=== PATIENT | male | born 1955 | race Caucasian/White ===

== ENCOUNTER 2021-02-10 09:06 | Emergency (ER) | payer OTHER, SELFPAY ==
[2021-02-10 09:36] VITALS: BP 163/87; PULSE 66; RESP 17; TEMP 37.1; O2SAT 100; BMI 30.9
--- NOTE | 2021-02-10 10:01 | DI.CT.S_ITS ---
PROCEDURE: CT KIDNEY URETER BLADDER (KUB) INDICATIONS: right flank pain, now right groin, likely stone. TECHNIQUE: Noncontrast 5 mm thick sections acquired from the diaphragms to the symphysis. 5 mm thick coronal and sagittal reformats were then performed. For radiation dose reduction, the following was used: automated exposure control, adjustment of mA and/or kV according to patient size. COMPARISON: None. FINDINGS: Image quality: Excellent. Lung bases: Lung bases are clear. Heart size is normal. Urinary system: Right kidney: Mild hydronephrosis and perinephric stranding. No renal stone. Right ureter: Mildly dilated to the level of the ureterovesical junction where there is a 2 mm obstructing stone. Left kidney: No stone or hydronephrosis. Left ureter: Unremarkable. Bladder: Decompressed. No bladder stones. No bladder wall thickening. Other solid organs: Liver is normal in size. Gallbladder is unremarkable. Pancreas is normal in contours. Spleen is normal in size. No adrenal nodules. Peritoneum and bowel: Unenhanced bowel loops demonstrate normal wall thickness and caliber. No free fluid or air. Extensive sigmoid diverticulosis. Extensive diffuse colonic diverticulosis. Evidence of diverticulitis. Nodes and vessels: No retroperitoneal or mesenteric adenopathy by size criteria. Aorta and inferior vena cava are normal in caliber. Abdominal wall: No ventral hernias. Pelvis: No free pelvic fluid. No inguinal hernias or adenopathy. Bones: No suspicious bony lesions. No vertebral body compression fractures. IMPRESSION: 1. A 2 mm stone obstructs the right ureter at the level of the ureterovesical junction resulting in mild right hydronephrosis and perinephric stranding. 2. Diverticulosis without evidence of diverticulitis. Dictated by: Leodan Muñoz M.D. on 02/10/2021 at 9:43 Approved by: Leodan Muñoz M.D. on 02/10/2021 at 9:47
--- NOTE | 2021-02-10 10:04 | ED.MALEGU ---
HPI - Male Genitourinary General Chief complaint: Abdominal Pain Stated complaint: Kidney Stones Time Seen by Provider: 02/10/21 09:28 Source: patient Mode of arrival: Family Vehicle Limitations: no limitations History of Present Illness HPI Narrative: This is a 65-year-old male who comes to the emergency department with complaint of right flank pain with sudden onset about 2 or 3:00 a.m.. Patient was visiting [place] overnight he was evaluated by the medics and was given Toradol and Zofran which gave him approximately 2 hours improved and then his pain began to reoccur. States his flank pain has since moved more to the right groin and testicle area. Patient still has some flank discomfort but it is mostly anterior at this time. No fevers or chills. He does no longer nauseated or having any emesis but was nauseated early this morning. He denies any hematuria, dysuria, frequency or difficulty with urination. He denies any new changes to bowel movements with no diarrhea constipation. Patient states he had similar symptoms about 10 years ago, was seen at the hospital and was able to pass his stone within several days. Patient denies any regular medications. He does have sleep apnea and uses a CPAP. He does have a history of atrial fibrillation and had an ablation several years ago with resolution of his atrial fibrillation and is not currently anticoagulated. He denies any other surgeries, he has not required urology follow-up for intervention for his prior kidney stone. He denies any allergies to medications. He is accompanied by his . Related Data Home Medications Medication Instructions Recorded Confirmed atorvastatin 20 mg tablet 10 mg PO BEDTIME tab 10/12/18 10/12/18 Previous Rx's Medication Instructions Recorded ciprofloxacin HCl 500 mg tablet 500 mg PO BID #6 tab 10/12/18 zolpidem 10 mg tablet 10 mg PO BEDTIME PRN #30 tab 10/12/18 lorazepam 0.5 mg tablet 0.5 mg PO DAILY #5 tab 10/18/18 hydrocodone-acetaminophen 1 tab PO Q6H PRN #14 tab 02/10/21 tamsulosin [Flomax] 0.4 mg PO DAILY #7 cap 02/10/21 Allergies Allergy/AdvReac Type Severity Reaction Status Date / Time No Known Allergies Allergy Uncoded 02/10/21 09:39 Review of Systems Review of Systems ROS Unobtainable: All systems reviewed & are unremarkable except as noted in HPI and below Patient History Medical History Anxiety (2009) Atrial fibrillation (2015) Foot pain (1999) Hearing loss (2009) Hyperlipidemia (2015) Sleep apnea (2007) TIA (transient ischemic attack) (01/18/17) Tinnitus (1999) Surgical History S/P ablation of atrial fibrillation Status post cardiac catheterization (2002) Status post excision of lipoma Family History Father Heart disease Hypertension High cholesterol Stroke Mother Age: 92 Hypertension High cholesterol Brother No problems noted. Brother No problems noted. Brother No problems noted. Family/Other No problems noted. Sister No problems noted. Social History marital status: unmarried,living together number of children: 1 household members: significant other lives independently: Yes education level: college occupational status: other (retired) Smoking Status: Never smoker alcohol intake: current substance use type: does not use Smoking Status: Never smoker alcohol intake frequency: 0-2 drinks per day Substance Use Type: does not use Exam Narrative Exam Narrative: GENERAL: Alert and oriented x three, well-nourished male in mild to moderate distress. HEENT: Head normocephalic, atraumatic, EOMI, pupils reactive, face symmetric, moist mucous membranes NECK: Supple, full range of motion CARDIOVASCULAR: Regular rate and rhythm without murmurs, rubs or gallops. RESPIRATORY: Breath sounds equal bilaterally, no wheezes rales or rhonchi. ABDOMEN: Soft, nontender. Normoactive bowel sounds all 4 quadrants. No guarding or rebound, rigidity, no mass : No CVA tenderness EXTREMITIES: Normal range of motion, no clubbing or edema. Neurovascularly intact NEUROLOGICAL: Cranial nerves II through XII grossly intact. Moving all extremities SKIN: Warm, dry, no petechiae, no rashes or lesions. Initial Vital Signs Initial Vital Signs: Vital Signs Temperature 98.8 F 02/10/21 09:36 Pulse Rate 66 02/10/21 09:36 Respiratory Rate 17 02/10/21 09:36 Blood Pressure 163/87 H 03/14/21 09:36 Pulse Oximetry 100 02/10/21 09:36 Course Orders Ordered: ED Orders 02/10/21 09:35 Complete Blood Count AUTO DIFF Stat Comprehensive Metabolic Panel Stat Lipase Stat Urine Microscopic Stat 02/10/21 10:01 CT kidney ureter bladder (KUB) Stat Discontinued Medications Lidocaine HCl 8 ml/ Sodium (Chloride) 58 mls @ 348 mls/hr IV NOW ONE Stop: 02/10/21 10:02 Last Infusion: 02/10/21 10:45 Dose: 0 mls/hr Documented by: Admin: 02/10/21 10:32 Dose: 348 mls/hr Documented by: MARLON Sodium Chloride (Normal Saline 0.9%) 1,000 mls @ 1,000 mls/hr IV BOLUS ONE Stop: 02/10/21 11:00 Last Infusion: 02/10/21 11:38 Dose: 0 mls/hr Documented by: Admin: 02/10/21 10:33 Dose: 1,000 mls/hr Documented by: MARLON Ketorolac Tromethamine (Ketorolac 60 Mg/2 Ml Vial) 30 mg IV NOW ONE Stop: 02/10/21 11:41 Last Admin: 02/10/21 11:48 Dose: 30 mg Documented by: MARLON Tamsulosin HCl (Tamsulosin 0.4 Mg Capsule) 0.4 mg PO NOW ONE Stop: 02/10/21 11:02 Last Admin: 02/10/21 11:12 Dose: 0.4 mg Documented by: MARLON Reevaluation(s) Reevaluation #1: patient improved and feels comfortable to discharge home. Time: 11:03 Reevaluation #2: Patient had reoccurence of pain prior to discharge. He is greater than 6 hours from Toradol when on [place] so second dose was given. On reassessment. Time: 12:06 Reevaluation #3: Patient is feeling much better after the Toradol. He states he was able to fall asleep and he feels comfortable returning home at this time with return precautions. All his questions were answered. Time: 12:33 Vital Signs Vital signs: Vital Signs - 8 hr 02/10/21 09:36 02/10/21 12:03 02/10/21 12:30 Temperature 98.8 F Pulse Rate 66 64 63 Respiratory Rate 17 Blood Pressure 163/87 H 155/85 H Pulse Oximetry 100 97 98 MDM - Male Genitourinary Lab Data Attestation: I reviewed the patient's lab results. Result diagrams: 02/10/21 09:35 02/10/21 09:35 Labs: Lab Results 02/10/21 02/10/21 02/10/21 Range/Units 09:35 09:35 09:35 WBC 12.2 H (4.5-11.0) X10^3/uL RBC 4.66 (4.5-5.9) X10^6/uL Hgb 13.9 (13.5-17.5) g/dL Hct 42.6 (41-53) % MCV 91.3 (80-100) fL MCH 29.8 (26-34) PG MCHC 32.6 (30-36) % RDW 14.0 (11.6-14.8) % Plt Count 235 (150-400) X10^3/uL Neut % (Auto) 85.4 H (50-75) % Lymph % (Auto) 9.6 L (25-40) % [place] % (Auto) 4.8 (3-14) % Eos % (Auto) 0.0 L (2-4) % Baso % (Auto) 0.2 (0-2) % Neut # (Auto) 96454 H (6988-3916) /uL Lymph # (Auto) 1200 (1353-0508) /uL [place] # (Auto) 600 (0-900) /uL Eos # (Auto) 0 (0-450) /uL Baso # (Auto) 0 (0-100) /uL Sodium 140 (137-145) mmol/L Potassium 4.6 (3.4-5.1) mmol/L Chloride 107 (98-107) mmol/L Carbon Dioxide 29 (22-32) mmol/L BUN 29 H (9-20) mg/dL Creatinine 1.02 (0.66-1.25) mg/dL Estimated GFR > 60.0 (>60) mL/min BUN/Creatinine Ratio 28.4 H (6-22) Glucose 121 H (80-110) mg/dL Calcium 9.5 (8.4-10.2) mg/dL Total Bilirubin 0.2 (0.2-1.3) mg/dL AST 26 (17-59) IU/L ALT 19 (<50) IU/L Alkaline Phosphatase 72 (38-126) U/L Total Protein 7.2 (6.3-8.2) g/dL Albumin 4.3 (3.5-5.0) g/dL Globulin 2.9 (1.7-4.1) g/dL Albumin/Globulin Ratio 1.5 (1.0-2.8) Lipase 85 (23-300) U/L Urine RBC 0-1/hpf (0-5/HPF) Urine WBC 0-1/hpf (0-5/HPF) Ur Squamous Epith Cells 0-1 /hpf (0-5/HPF) Calcium Oxalate Crystal Moderate H Amorphous Sediment 1+ Urine Bacteria None seen (None) Urine Mucus 1+ H (Negative) Ur Culture Indicated? Cult not indicated Urine Dip Bedside Urine Glucose Negative Bedside Urine Bilirubin - Negative Bedside Urine Ketone - Negative Urine Specific [place] 1.030 Bedside Urine Occult Blood +/- Bedside Urine pH 6.0 Bedside Urine Protein +/- 15 Bedside Urine Urobilinogen - Negative Bedside Urine Nitrite - Negative Bedside Urine Leukocytes - Negative Esterase Imaging Data CT scan - abdomen/pelvis: Radiologist's Impression: [address] [id number] Scan ReportSigned Patient: Jose Luis Harden#: [id number]: 7Acct:[id number]/Sex: 65 / MDate of Service: 02/10/21Loc: EDAccession Number: [id number] Procedure: CT kidney ureter bladder (KUB) Ordering Provider: Thuy Ovalle D.O. PROCEDURE: CT KIDNEY URETER BLADDER (KUB) INDICATIONS: right flank pain, now right groin, likely stone. TECHNIQUE: Noncontrast 5 mm thick sections acquired from the diaphragms to the symphysis. 5 mm thick coronal and sagittal reformats were then performed. For radiation dose reduction, the following was used: automated exposure control, adjustment of mA and/or kV according to patient size. COMPARISON: None. FINDINGS: Image quality: Excellent. Lung bases: Lung bases are clear. Heart size is normal. Urinary system: Right kidney: Mild hydronephrosis and perinephric stranding. No renal stone. Right ureter: Mildly dilated to the level of the ureterovesical junction where there is a 2 mm obstructing stone. Left kidney: No stone or hydronephrosis. Left ureter: Unremarkable. Bladder: Decompressed. No bladder stones. No bladder wall thickening. Other solid organs: Liver is normal in size. Gallbladder is unremarkable. Pancreas is normal in contours. Spleen is normal in size. No adrenal nodules. Peritoneum and bowel: Unenhanced bowel loops demonstrate normal wall thickness and caliber. No free fluid or air. Extensive sigmoid diverticulosis. Extensive diffuse colonic diverticulosis. Evidence of diverticulitis. Nodes and vessels: No retroperitoneal or mesenteric adenopathy by size criteria. Aorta and inferior vena cava are normal in caliber. Abdominal wall: No ventral hernias. Pelvis: No free pelvic fluid. No inguinal hernias or adenopathy. Bones: No suspicious bony lesions. No vertebral body compression fractures. IMPRESSION: 1. A 2 mm stone obstructs the right ureter at the level of the ureterovesical junction resulting in mild right hydronephrosis and perinephric stranding. 2. Diverticulosis without evidence of diverticulitis. Dictated by: Leodan Muñoz M.D. on 02/10/2021 at 9:43 Approved by: Leodan Muñoz M.D. on 02/10/2021 at 9:47 MDM Narrative Medical decision making narrative: This is a 65-year-old male who comes in with acute onset of right-sided flank pain which is now been moving more to the right groin and testicle. Patient states he has had 1 prior kidney stone which felt very similar. Patient has calcium oxalate crystals in his urine. CT KUB shows a 2 mm stone with some mild hydro and stranding at the right ureteral vesicular junction. Patient does not have any acute changes to his renal function. He has a mild leukocytosis but no other findings of infection clinically or on urinalysis. Patient's pain was improved significantly after lidocaine followed by Toradol. Patient was given return precautions. Based on the size of his stone we discussed it may pass without any additional intervention but if he has any red flag symptoms he should return. Discharge Plan Departure Patient Disposition: Home Clinical Impression: Kidney stone on right side Instructions: DI for Kidney Stones Activity Restrictions/Additional Instructions: Follow-up with your physician and/or Urology in the next 3-5 days if your symptoms have not completely resolved. You may continue ibuprofen up to 800 mg every 8 hours as needed for pain. You may take [place] 1-2 tablet every 6 hours as needed for pain. This medication can make you sleepy do not drive, perform hazardous activities or make any major decisions while taking it. This medication also will make you constipated so make sure to take stool softener once daily until stools are regular and soft. Take Flomax once daily until gone. Return to the emergency department for fevers greater 100.4 F, new or worsening flank or abdominal pain, persistent vomiting, signs of dehydration, did inability to urinate, black or bloody stools, lightheadedness or passing out or other new or concerning symptoms. Prescriptions: New tamsulosin [Flomax] 0.4 mg capsule 0.4 mg PO DAILY Qty: 7 RF: 0 hydrocodone-acetaminophen 5-325 mg tablet 1 tab PO Q6H PRN (Reason: pain) Qty: 14 RF: 0 No Action lorazepam [Ativan] 0.5 mg tablet 0.5 mg PO DAILY Qty: 5 RF: 0 atorvastatin 20 mg tablet 10 mg PO BEDTIME RF: 0 zolpidem 10 mg tablet 10 mg PO BEDTIME PRN (Reason: insomnia) Qty: 30 RF: 0 ciprofloxacin HCl 500 mg tablet 500 mg PO BID Qty: 6 RF: 0 Referrals: Dileep Thakkar MD [Non-Staff] - Deysi Caldwell DO [Primary Care Provider] -
[2021-02-10 10:09] LABS: Bacteria Urine None Seen
[2021-02-10 10:15] LABS: Add Manual Diff / Slide Review NO; Basophils Absolute Auto 0 /uL (0-100); Basophils Percent Auto 0.2 % (0-2); Eosinophils Absolute Auto 0 /uL (0-450); Hematocrit 42.6 % (41-53); Hemoglobin 13.9 g/dL (13.5-17.5); Lymphocytes Absolute Auto 1200 /uL (1100-4500); Lymphocytes Percent Auto 9.6 % (25-40); Mean Corpuscular HGB Conc 32.6 % (30-36); Mean Corpuscular Hemoglobin 29.8 PG (26-34); Mean Corpuscular Volume 91.3 fL (80-100); Monocytes Absolute Auto 600 /uL (0-900); Monocytes Percent Auto 4.8 % (3-14); Neutrophils Absolute Auto 10400 /uL (1500-7000); Neutrophils Percent Auto 85.4 % (50-75); Platelet Count 235 X10^3/uL (150-400); Red Blood Cell Count 4.66 X10^6/uL (4.5-5.9); White Blood Cell Count 12.2 X10^3/uL (4.5-11.0)
[2021-02-10 10:18] LABS: Alanine Aminotransferase 19 IU/L (<50); Albumin 4.3 g/dL (3.5-5.0); Albumin Globulin Ratio 1.5 (1.0-2.8); Alkaline Phosphatase 72 U/L (38-126); Aspartate Aminotransferase 26 IU/L (17-59); BUN Creatinine Ratio 28.4 (6-22); Bilirubin Total 0.2 mg/dL (0.2-1.3); Blood Urea Nitrogen 29 mg/dL (9-20); Calcium 9.5 mg/dL (8.4-10.2); Carbon Dioxide 29 mmol/L (22-32); Chloride 107 mmol/L (98-107); Estimated Glomerular Filt Rate > 60.0 mL/min (>60); Globulin 2.9 g/dL (1.7-4.1); Glucose 121 mg/dL (80-110); HEMOLYSIS < 15 (0-50); Lipase 85 U/L (23-300); Potassium 4.6 mmol/L (3.4-5.1); Sodium 140 mmol/L (137-145); Total Protein 7.2 g/dL (6.3-8.2)
[2021-02-10] MEDS: SODIUM CHLORIDE 0.9% IV (10:32)
[2021-02-10] MEDS: LIDOCAINE 2% IV (10:32)
[2021-02-10] MEDS: SODIUM CHLORIDE 0.9% 1,000 ML 1000 ML IV (10:33)
[2021-02-10 10:42] LABS: Amorphous Sediment Urine 1+; Calcium Oxalate Crystals Urine Moderate; RBC Urine 0-1/HPF (0-5/HPF); Squamous Epithelial Cell Urine 0-1 /HPF (0-5/HPF); WBC Urine 0-1/HPF (0-5/HPF)
[2021-02-10 10:43] LABS: Culture Indicated Urine Cult Not Indicated; Mucus Urine 1+ (Negative)
[2021-02-10] MEDS: TAMSULOSIN 0.4 MG CAPSULE PO (11:12)
[2021-02-10] MEDS: KETOROLAC 60 MG/2 ML VIAL 30 MG IV (11:48)
[2021-02-10 12:03] VITALS: PULSE 64; O2SAT 97
[2021-02-10 12:30] VITALS: BP 155/85; PULSE 63; O2SAT 98
== END 2021-02-10 12:48 | disposition home or self-care (01) ==
PROVIDERS: Emergency Provider Emergency Medicine; PCP Family Medicine
DX: N20.0 Calculus of kidney (principal)
CPT/HCPCS: 36415; 74176; 80053; 81003; 81015; 83690; 85025; 96361; 96374; 96375; 99283; 99284; J1885

== ENCOUNTER → 2021-03-06 08:51 | Outpatient (CLI) | payer OTHER, SELFPAY ==
[2021-03-06] MEDS: COVID-19 VACC #1, MRNA(MOD) 100 MCG/0.5 ML VIAL IM (08:57)
== END ==
PROVIDERS: PCP Family Medicine; Visit Provider Internal Medicine
DX: Z23 Encounter for immunization (principal)
CPT/HCPCS: 0011A; 91301

== ENCOUNTER → 2021-04-03 08:49 | Outpatient (CLI) | payer OTHER, SELFPAY ==
[2021-04-03] MEDS: COVID-19 VACC #2, MRNA(MOD) 100 MCG/0.5 ML VIAL IM (08:57)
== END ==
PROVIDERS: PCP Family Medicine; Visit Provider Internal Medicine
DX: Z23 Encounter for immunization (principal)
CPT/HCPCS: 0012A; 91301